=== PATIENT | female | born 1970 | race American Indian/Alaskan Native ===

== ENCOUNTER 2016-06-02 08:06 | Emergency (ER) | payer BC ==
[2016-06-02] MEDS ORDERED: TESSALON PERLES PO ONE (10:33)
[2016-06-02] MEDS ORDERED: MOTRIN PO ONE (10:33)
--- NOTE | 2016-06-02 10:39 | Emergency Department Report ---
ED General Adult HPI - General Chief complaint: Upper Respiratory Infection Stated complaint: FEVER BACK ACHE/HEAD Time Seen by Provider: 06/02/16 10:22 Source: patient Mode of arrival: Ambulatory Limitations: No Limitations - History of Present Illness Initial comments: PT c/o cough x 1.5 weeks. PT states yesterday she was at work and she felt fatigued and sick so she had to leave work early. No improvement with theraflu. PT states she could not sleep last night and she checked her temp multiple times. t max 100.4 which improved with rest. MD Complaint: fever -: Gradual, Last night Severity scale (0 -10): 8 Associated Symptoms: cough, weakness (generalized fatigue). denies: chest pain , loss of appetite, shortness of breath Treatments Prior to Arrival: other (theraflu - yesterday ) - Related Data Previous Rx's Medication Instructions Recorded Last Taken Type Benzonatate [Tessalon Perles] 100 mg PO Q8HR PRN #12 capsule 06/02/16 Unknown Rx Ibuprofen [Motrin] 600 mg PO Q8H PRN #15 tablet 06/02/16 Unknown Rx guaiFENesin DM [Robitussin Dm] 10 ml PO Q6HR PRN #1 bottle 06/02/16 Unknown Rx Allergies Allergy/AdvReac Type Severity Reaction Status Date / Time No Known Allergies Allergy Verified 02/21/14 07:17 ED Review of Systems ROS: Stated complaint: FEVER BACK ACHE/HEAD Other details as noted in HPI Comment: All other systems reviewed and negative Constitutional: chills, fever, other (wt loss. PT states she was 209lbs 2 years ago and her wt dropped to 160 when she was walking. pt states her wt is even less today ) ENT: congestion ("always") Gastrointestinal: as per HPI, other (tolerating po fluids ). denies: vomiting Genitourinary: denies: dysuria Musculoskeletal: back pain ED Past Medical Hx - Past Medical History Previous Medical History?: No - Surgical History Additional Surgical History: Tubal ligation - Social History Smoking Status: Current Every Day Smoker Substance Use Type: None - Medications Home Medications: Home Medications Medication Instructions Recorded Confirmed Last Taken Type Benzonatate [Tessalon Perles] 100 mg PO Q8HR PRN #12 capsule 06/02/16 Unknown Rx Ibuprofen [Motrin] 600 mg PO Q8H PRN #15 tablet 06/02/16 Unknown Rx guaiFENesin DM [Robitussin Dm] 10 ml PO Q6HR PRN #1 bottle 06/02/16 Unknown Rx ED Physical Exam - General Limitations: No Limitations General appearance: alert, in no apparent distress - Head Head exam: Present: atraumatic, normocephalic, normal inspection - Eye Eye exam: Present: normal appearance, EOMI. Absent: conjunctival injection - ENT ENT exam: Present: normal exam, mucous membranes moist, TM's normal bilaterally , normal external ear exam - Neck Neck exam: Present: normal inspection. Absent: tenderness, lymphadenopathy - Respiratory Respiratory exam: Present: normal lung sounds bilaterally. Absent: respiratory distress, wheezes - Cardiovascular Cardiovascular Exam: Present: normal rhythm, tachycardia (mildly ) - GI/Abdominal GI/Abdominal exam: Present: soft. Absent: tenderness - Extremities Exam Extremities exam: Present: normal inspection, full ROM - Back Exam Back exam: Present: normal inspection. Absent: tenderness, CVA tenderness (R), CVA tenderness (L) - Neurological Exam Neurological exam: Present: alert, oriented X3 - Psychiatric Psychiatric exam: Present: normal affect, normal mood - Skin Skin exam: Present: warm, dry, intact ED Course Vital Signs 06/02/16 06/02/16 08:21 14:18 Temperature 100.4 F H 100 F H Pulse Rate 107 H 93 H Respiratory 20 18 Rate Blood Pressure 125/80 Blood Pressure 135/78 [Left] O2 Sat by Pulse 100 100 Oximetry - Reevaluation(s) Reevaluation #1: 06/02/16 10:42 PT aware of plan of care. Reevaluation #2: 06/02/16 14:01 PT aware of xr and lab results. PT has no questions at this time. pt's temp decreased to 100, hr 94 and pulse ox 98% at this time. - Pulse Oximetry Interpretation Digit-Finger Initial Pulse Oximetry Readin Actions Taken: none ED Medical Decision Making - Radiology Data Radiology results: report reviewed CXR: Nap - Differential Diagnosis PNA, Bronchitis, influenza Critical care attestation.: If time is entered above; I have spent that time in minutes in the direct care of this critically ill patient, excluding procedure time. ED Disposition Clinical Impression: Viral URI with cough Disposition: DISCHARGED TO HOME OR SELFCARE Is pt being admited?: No Does the pt Need Aspirin: No Condition: Stable Instructions: Upper Respiratory Infection (ED), Viral Syndrome (ED) Prescriptions: Benzonatate [Tessalon Perles] 100 mg PO Q8HR PRN #12 capsule PRN Reason: Cough guaiFENesin DM [Robitussin Dm] 10 ml PO Q6HR PRN #1 bottle PRN Reason: Cough Ibuprofen [Motrin] 600 mg PO Q8H PRN #15 tablet PRN Reason: Pain Referrals: PRIMARY CARE, [Primary Care Provider] - 3-5 Days Forms: Work/School Release Form(ED) Time of Disposition: 14:05
[2016-06-02 11:41] LABS: Bilirubin,Urine NEG (Negative); Blood,Urine NEG (Negative); Ketones,Urine TR mg/dL (Negative); Leukocyte Esterase,Urine NEG (Negative); Mucus,Urine 3+ /HPF; Nitrite,Urine NEG (Negative)
--- NOTE | 2016-06-02 13:32 | XRay Report ---
CHEST TWO VIEWS: 06/02/16 CLINICAL: Cough and fever.Weight loss. COMPARISON: None FINDINGS: Normal heart and pulmonary vasculature. The lungs are normally expanded and clear.The bones and soft tissues are unremarkable. IMPRESSION: Normal chest.
[2016-06-02 14:19] VITALS: BP 135/78
== END 2016-06-02 14:18 | disposition home or self-care (01) ==
LOC: EDBD 08:06 → ED 08:06
DX: J06.9 Acute upper respiratory infection, unspecified (principal); F17.200 Nicotine dependence, unspecified, uncomplicated; Z98.51 Tubal ligation status
CPT/HCPCS: 71020; 81001; 81025; 87400; 99283

== ENCOUNTER 2020-03-04 10:20 | Outpatient (CLI) | payer BC ==
--- NOTE | 2020-03-04 11:55 | Ultrasound Report ---
LEFT DIGITAL DIAGNOSTIC MAMMOGRAM WITH CAD CONVENTIONAL, 03/04/2020 LEFT LIMITED BREAST ULTRASOUND CLINICAL INFORMATION / INDICATION: Follow-up known left breast cancer post adjuvant chemotherapy. R92 .8 TECHNIQUE: Digital left mammographic imaging was performed. Limited ultrasound was performed. This ex amination was interpreted with the benefit of Computer-Aided Detection (CAD) analysis. COMPARISON: Left breast mammogram 10/07/19 and left breast ultrasound 10/07/19. FINDINGS: Breast Density: There are scattered areas of fibroglandular density. MAMMOGRAPHIC FINDINGS: The dominant nodule is at the top o'clock position and measures 1.6 cm on the current study compared to 1.4 cm previously. There is an associated biopsy clip. The other nodularity in the left lower inner quadrant has not changed significantly in size. Another biopsy clip is noted in this region. No new abnormality is seen. ULTRASOUND FINDINGS: Targeted ultrasound evaluation was performed of the area of interest. There is a 1.7 cm irregular hypoechoic solid nodule at the 5:00 position 7 cm from the nipple. The nodule nancy sured approximately 1.5 cm previously. The other mammographically detected nodularity is not well see n sonographically. Incidental note is made of mild benign-appearing ductal ectasia in the subareolar region. IMPRESSION: Multifocal nodularity in the left inferior and inferomedial breast. The dominant nodule a t the 5:00 position has shown mild increase in size since the prior study. The patient is due for ciera re 03/21/20. Follow up recommendation: Surgical consult BI-RADS Category 6: Known Biopsy-Proven Malignancy. A "normal" or negative report should not discourage follow up or biopsy of a clinically significant f inding. A written summary of these findings will be mailed to the patient. The patient will be entered into a mammography reporting system which will generate a reminder letter for the patient's next appointmen t at the appropriate interval. According to the [employer], yearly mammograms are recommended starting at age 40 and continuing as long as a woman is in good health. Breast MRI is recommended for women with an leonides roximately 20-25% or greater lifetime risk of breast cancer, including women with a strong family his tory of breast or ovarian cancer and women who have been treated for Hodgkin's disease. Signer Name: Roni Belle MD Signed: 03/04/2020 11:51 AM Workstation Name: [id number]
== END 2020-03-04 10:21 | disposition home or self-care (01) ==
LOC: MAMMO 10:20
PROVIDERS: ATTEND Surgery
DX: N63.23 Unspecified lump in the left breast, lower outer quadrant (principal); N63.24 Unspecified lump in the left breast, lower inner quadrant

== ENCOUNTER 2020-04-06 08:20 | Observation (INO) | payer BC ==
--- NOTE | 2020-04-01 12:49 | Anesthesia Consultation ---
Anesthesia Consult and Med Hx Date of service: 04/06/20 - Airway Anesthetic Teeth Evaluation: Poor, Chipped ROM Head & Neck: Adequate Mental/Hyoid Distance: Adequate Mallampati Class: Class II Intubation Access Assessment: Probably Good - Pulmonary Exam CTA: Yes - Cardiac Exam Cardiac Exam: RRR - Pre-Operative Health Status ASA Pre-Surgery Classification: ASA3 Proposed Anesthetic Plan: General Nerve Block: PEC - Pulmonary Hx Smoking: Yes (quit within the last year) Hx Respiratory Symptoms: Yes (occasional KELLEY, chronic) - Cardiovascular System Hx Hypertension: Yes Hx Heart Attack/AMI: No (TTE 02/2020 30-35%) Hx Percutaneous Transluminal Coronary Angioplasty (PTCA): No Hx Cardia Arrhythmia: No - Central Nervous System CVA: No - Gastrointestinal Hx Gastroesophageal Reflux Disease: Yes (mild, diet related) - Endocrine Hx Renal Disease: No (03/31/20 BUN/test case developer 11/0.8) Hx Liver Disease: No Hx Insulin Dependent Diabetes: No Hx Non-Insulin Dependent Diabetes: No Hx Thyroid Disease: No - Hematic Hx Anemia: No (03/31/20 H/H ) - Other Systems Hx Cancer: Yes (hx breast ca s/p chemotherapy) Hx Obesity: Yes (BMI 32) - Additional Comments Anesthesia Medical History Comments: No hx anesthetic complications. Most recent cardiology records reviewed.
[~2020-04-06 08:20] MED LIST: ACETAMINOPHEN 500 MG TAB PO SCH; GABAPENTIN 300 MG CAP PO NR; LACTATED RINGERS 1,000 ML IV SCH; MAGNESIUM OXIDE 400 MG TAB PO SCH; SCOPOLAMINE TRANSDERMAL PATCH 72 HR TD NR; ceFAZolin/Water 2 GM/20 ML 2 GM/20 ML SYRINGE IV NR; fentaNYL 100 MCG/2 ML INJ IV PRN
--- NOTE | 2020-04-06 10:10 | Anesthesia Day of Surgery ---
Anesthesia Day of Surgery - Day of Surgery Patient Examined: Yes Patient H&P Reviewed: Yes Patient is NPO: Yes
[2020-04-06] MEDS ORDERED: HYDROmorphone 1 MG/1 ML INJ IV PRN ×2 (10:30)
[2020-04-06] MEDS ORDERED: ONDANSETRON 4 MG/2 ML INJ IV PRN ×2 (10:30→17:05)
[2020-04-06] MEDS ORDERED: LIDOCAINE MPF (2%) 20 MG/1 ML VIAL 5 ML ONE (11:17)
[2020-04-06] MEDS ORDERED: dexAMETHasone 20 MG/5 ML VIAL ONE (11:17)
[2020-04-06] MEDS ORDERED: propofoL 200 MG/20 ML VIAL IV ONE (11:17)
[2020-04-06] MEDS ORDERED: ROCURONIUM 50 MG/5 ML INJ IV ONE (11:17)
[2020-04-06] MEDS ORDERED: ONDANSETRON 4 MG/2 ML INJ ONE (11:17)
[2020-04-06] MEDS ORDERED: HYDROmorphone 1 MG/1 ML INJ ONE ×2 (11:17→17:01)
[2020-04-06] MEDS ORDERED: BUPIVACAINE/PF (0.25%) 2.5 MG/ML 30 ML VIAL INFILTRATI ONE ×2 (11:35→11:49)
[2020-04-06] MEDS ORDERED: dexAMETHasone 4 MG/ML VIAL ONE (11:36)
[2020-04-06] MEDS: MIDAZOLAM 2 MG/2 ML INJ IV NR ×2 (11:40→11:42)
[2020-04-06] MEDS ORDERED: LIDOCAINE (1%) 10 MG/1 ML VIAL 20 ML MDV ONE (11:49)
[2020-04-06] MEDS ORDERED: SODIUM CHLORIDE P/F VIAL 10 ML 10 ML ONE (11:49)
[2020-04-06] MEDS ORDERED: METHYLENE BLUE 50 MG/10 ML AMP ONE ×2 (11:57→15:08)
[2020-04-06] MEDS ORDERED: WATER FOR IRRIG STERILE 1,500 ML BOTTLE IR ONE (13:08)
[2020-04-06] MEDS ORDERED: METHYLENE BLUE 50 MG/10 ML AMP IV ONE ×2 (13:08)
[2020-04-06] MEDS ORDERED: ceFAZolin 1 GM VIAL ONE ×2 (13:59→16:40)
[2020-04-06] MEDS ORDERED: BACITRACIN 50,000 UNIT VIAL ONE (14:00)
[2020-04-06] MEDS ORDERED: GENTAMICIN 40 MG/ML VIAL 2 ML ONE (14:00)
[2020-04-06] MEDS ORDERED: SODIUM CHLORIDE P/F VIAL 10 ML 20 ML ONE (14:10)
[2020-04-06] MEDS ORDERED: ceFAZolin 1 GM VIAL IV ONE (15:04)
[2020-04-06] MEDS ORDERED: BACITRACIN 50,000 UNIT VIAL IR ONE (15:04)
[2020-04-06] MEDS ORDERED: GENTAMICIN 40 MG/ML VIAL 2 ML IV ONE (15:11)
[2020-04-06] MEDS ORDERED: SODIUM CHLORIDE 0.9% 1000 ML 1,000 ML ONE (15:11)
[2020-04-06] MEDS ORDERED: SODIUM CHLORIDE 0.9% IRR 1,500 ML BOTTLE IR ONE (15:16)
--- NOTE | 2020-04-06 15:31 | Mammography Report ---
Left breast surgical specimen INDICATION: Left breast cancer, surgical excision. COMPARISON: 03/04/2020, 10/07/2019, 09/30/2019. FINDINGS: 3 images of left breast surgical specimen are submitted. Ribbon shaped biopsy marker and ward wtie shaped biopsy markers are noted within the specimen. IMPRESSION: Left breast surgical specimen demonstrating two biopsy markers (ribbon and bowtie) within the surgica l specimen. Signer Name: Graham Hernandez MD Signed: 04/06/2020 3:27 PM Workstation Name: [id number]
--- NOTE | 2020-04-06 15:32 | Operative Report ---
Operative Report Operative Report: Operative Report: Date of Service: April 06, 2020 Preoperative diagnosis: Multricentric left breast cancer of the lower outer quadrant Postoperative diagnosis: Same Procedure: Left total mastectomy with sentinel lymph node biopsy followed by ALND Surgeon: Angely Parr M.D. Nursing Home Administrator: Laverne Romero M.D. Anesthesia: Gen. Findings: Left breast clips present within left total mastectomy. 1 sentinel lymph node identified and positive for malignancy on frozen section of pathology and proceeded with left axillary lymph node dissection; palpable left axillary lymph nodes Complications: None Drains: per Plastic Surgery Estimated blood loss: 50-100 cc Disposition: Plastic surgery proceeded with left tissue market development specialist placement Indications for operative procedure: This is a 49-year-old lady with stage II multicentric left breast cancer of the lower outer quadrant, [id number] ER/TN positive. She completed neoadjuvant chemotherapy and recommendations were to proceed with a left mastectomy with SLNB and probable ALND given persistnet abnormal left axillary lymph nodes noted on ultrasound. She wished to proceed with immediated left tissue market development specialist placement in conjunction with plastic surgery. She wished to proceed with the above procedure. She understands the role of adjuvant radiation therapy. Procedure in detail: The patient was taken to the operating room and was placed supine. Gen. anesthesia was administered. The left nipple was injected with radioisotope and 1 cc of methylene blue. Bilateral chest and axillas were prepped and draped in the normal sterile operative fashion. Timeout was performed. Typical mastectomy incision markings were made. Ultrasound used to vianca the areas of known malignancy of the lower outer quadrant with at least 4 masses noted. Attention was taken towards the left breast. A gamma probe was inserted into the axilla to identify the sentinel lymph node location with uptake noted; abnormal appearing left axillary lymph node on ultrasound present as well and patient with prior known metastatic left axillary lymph node prior to starting neoadjuvant chemotherapy. A skin incision was made with a 10 blade knife and dissection taken down to the subcutaneous tissues. First began raising of the superior flap to the level of the clavicle superiorly and posteriorly to the pectoralis muscle. Followed by raising of the medial flap to the level of the sternum and posteriorly to the pectoralis muscle. Followed by raising of the lateral flap to the level of the latissimus dorsi muscle and taken down posteriorly. The gamma probe was inserted into the axilla, the axillary fascia was opened and 1 axillary lymph node was identified that was dissected free and sent to pathology; uptake and blue dye present. Patient with positive axillary lymph node prior to chemotherapy and palpable axillary lymphadenoathy noted. Axillary lymph node was sent to pathology with findings positive for malignancy noted on frozen section. Then proceeded with raising of the inferior flap to the level of the inframammary fold taken posterior to the pectoralis muscle. The mastectomy/breast was removed from the pectoralis muscle without incident. The specimen was appropriately marked and sent to radiology with findings of breast clips present and sent to pathology. Mastectomy skin flap anterior to the most anterior mass was revised and resected given concerns of close margins given tumor proximity to skin. Attention was then taken towards the left axilla. First began opening of the axillary fascia further. The lattismus dorsi muscle was identified and followed superiorly. Then proceeded with identification of the axillary vein followed by identification of the thoracodorsal bundle and long thoracic nerve. Axillary lymph nodes were then removed from the above boundaries with the aid of the bovie cautery in a sweeping-like motion and then sent to pathology. Axillary lymph nodes from level I and II were removed. Both nerves were identified and unharmed. Palpable axillary lymphadenopathy was noted. Hemostasis was noted. The chest wall was irrigated and suctioned. Plastic surgery then proceeded with left tissue market development specialist placement.
--- NOTE | 2020-04-06 15:37 | Short Stay Summary ---
Short Stay Documentation Date of service: 04/06/20 - History H&P: obtained from office - Allergies and Medications Current Medications: Allergies No Known Allergies Allergy (Verified 03/31/20 09:18) Home Medications Medication Instructions Recorded Confirmed Last Taken Type AtorvaSTATin [Lipitor] 40 mg PO QHS 03/31/20 03/31/20 04/05/20 History Lisinopril [Zestril] 20 mg PO DAILY 03/31/20 04/01/20 04/05/20 History Mag Oxide/D3/Turmeric Rt Xt 1 each PO DAILY 03/31/20 03/31/20 04/05/20 History [Magnesium-Vit D3-Turmeric Tab] Vitamin B Complex Vit C No.3 [B 1 each PO DAILY 03/31/20 03/31/20 04/05/20 History Complex with Vitamin C] carvediloL [Coreg] 3.125 mg PO BID 03/31/20 04/06/20 04/06/20 07:30 History tiZANidine [Zanaflex 4mg TAB] 4 mg PO Q8H PRN 03/31/20 03/31/20 04/05/20 History Celecoxib [celeBREX] 100 mg PO BID 04/01/20 04/01/20 04/05/20 History Thiamine HCl 500 mg PO HS 04/01/20 04/01/20 04/05/20 History Active Medications Acetaminophen (Acetaminophen 500 Mg Tab) 1,000 mg PO PREOP JANY Stop: 04/06/20 23:59 Last Admin: 04/06/20 10:10 Dose: 1,000 mg Documented by: Fentanyl (Fentanyl 100 Mcg/2 Ml Inj) 100 mcg IV ONCE PRN PRN Reason: sedation for nerve block Stop: 04/06/20 23:59 Last Admin: 04/06/20 11:42 Dose: 100 mcg Documented by: Gabapentin (Gabapentin 300 Mg Cap) 300 mg PO PREOP NR Stop: 04/06/20 23:59 Last Admin: 04/06/20 10:10 Dose: 300 mg Documented by: Hydromorphone HCl (Hydromorphone 1 Mg/1 Ml Inj) 0.25 mg IV Q10MIN PRN PRN Reason: Pain, Moderate (4-6) Stop: 04/06/20 17:00 Hydromorphone HCl (Hydromorphone 1 Mg/1 Ml Inj) 0.5 mg IV Q10MIN PRN PRN Reason: Pain , Severe (7-10) Stop: 04/06/20 17:00 Cefazolin Sodium (Ancef/Sterile Water 2 Gm/20 Ml) 2 gm in 20 mls @ 80 mls/hr IV PREOP NR; Protocol Stop: 04/06/20 23:59 Lactated Ringer's (Lactated Ringers) 1,000 mls @ 50 mls/hr IV DIRECT JANY Stop: 04/06/20 23:59 Last Admin: 04/06/20 10:30 Dose: 50 mls/hr Documented by: Magnesium Oxide (Magnesium Oxide 400 Mg Tab) 400 mg PO PREOP JANY Stop: 04/06/20 23:59 Last Admin: 04/06/20 10:10 Dose: 400 mg Documented by: Midazolam HCl (Midazolam 2 Mg/2 Ml Inj) 2 mg IV PREOP NR Stop: 04/06/20 23:59 Last Admin: 04/06/20 11:42 Dose: 2 mg Documented by: Ondansetron HCl (Ondansetron 4 Mg/2 Ml Inj) 4 mg IV ONCE PRN PRN Reason: Nausea And Vomiting Stop: 04/06/20 17:00 Scopolamine (Scopolamine Transdermal Patch 72 Hr) 1 each TD PREOP NR Stop: 04/09/20 05:59 Last Admin: 04/06/20 10:12 Dose: 1 each Documented by: - Brief post op/procedure progress note Date of procedure: 04/06/20 Pre-op diagnosis: Multicentric left breast cancer lower outer quadrant Post-op diagnosis: same Procedure: Left total mastectomy with SLNB followed by immediate left axillary lymph node dissection Anesthesia: GETA Findings: Left breast clips present; x1 SLN and positive for malignancy and proceeded with an ALND Surgeon: JOHNSON FUENTES Estimated blood loss: 50-100ml Pathology: list Specimen disposition: to lab Condition: stable - Disposition Condition at discharge: Good Disposition: DC/TX-02 SHRT-TRM GEN HOSP IP Short Stay Discharge Plan Activity: other (no heavy lifting) Diet: regular Wound: keep clean and dry Follow up with: JOHNSON FUENTES MD [Staff Physician] - 7 Days
[2020-04-06] MEDS ORDERED: diphenhydrAMINE 25 MG CAP PO PRN (15:38)
[2020-04-06] MEDS ORDERED: ACETAMINOPHEN 325 MG TAB PO PRN (15:38)
[2020-04-06] MEDS ORDERED: LACTATED RINGERS 1,000 ML IV SCH (15:45)
[2020-04-06] MEDS ORDERED: METOCLOPRAMIDE 10 MG TAB PO PRN (16:00)
[2020-04-06] MEDS ORDERED: HYDROmorphone 2 MG TAB PO PRN (16:00)
[2020-04-06] MEDS ORDERED: oxyCODONE /ACETAMINOPHEN 5-325MG TAB PO PRN (16:00)
[2020-04-06] MEDS ORDERED: hydrALAZINE 20 MG/1 ML INJ ONE (16:54)
--- NOTE | 2020-04-06 17:03 | Operative Report ---
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 Anesthesia: General EBL: Minimal Indications: This patient is a 49 year old AAF who is scheduled for a left mastectomy and desired reconstruction. We discussed her options including autologous tissue transfer and she was interested in the least complex reconstructive route possible. So we planned for tissue pole framer machine placement with the use of acellular dermal matrix. The benefits as well as the risks of the procedure were discussed with the patient, including but not limited to infection, bleeding, hematoma, seroma, wound dehiscence, implant rupture, need for further surgery including planned stages and additional reconstruction. The patient understands and accepts these risks and desires to proceed with surgery. Procedure: After review of pertinent history and physical exam findings the patient was brought into the operating room and placed supine on the OR table. After induction of adequate general anesthesia the entire chest was prepped and draped in the usual sterile surgical fashion. To begin, Dr. Angely Parr performed the left mastectomy and axillary node dissection and this procedure is dictated under a separate operative note. When this was completed, the breast reconstruction was started on the right breast. Using electrocautery we dissected a submuscular pocket behind pectoralis muscle to accommodate the tissue pole framer machine. The pocket was thoroughly irrigated with triple antibiotic solution and we began re-creating the inframammary border using Flex HD perforated contoured, a total size of [id number], SN [id number]. The inferior aspect of the Flex HD was secured to the chest fascia using 2-0 PDS suture. This was followed by placement of the tissue pole framer machine, [employer] Siltex 650cc (SN [id number]), in the submuscular pocket. Following this the inferior border of the pectoralis fascia was secured to the superior border of the FlexHD also using 2-0 PDS suture. A 19 [place] Jarred drain was placed in the subcutaneous space and secured using 2-0 Nylon suture. Using the enclosed injection needle, the injection port was identified and 250cc of methylene blue-tinged injectable saline was added to the implant. We then began a 3-layered closure using 2-0 Monocryl and 3-0 Monoderm Quill 40u05ym suture. This was followed by Dermabond glue and then Telfa with tegaderm followed by bra binder. Patient was then awakened from general anesthesia and transferred to the recovery room instable condition. She tolerated the procedure well. There were no complications. All sponge, needle and instrument counts were correct at the end of the case.
[2020-04-06] MEDS: HYDROmorphone 1 MG/1 ML INJ IV PRN ×4 (17:04→17:34)
--- NOTE | 2020-04-06 17:26 | Post Anesthesia Evaluation ---
- Post Anesthesia Evaluation Patient Participated: Yes Airway Patent: Yes Stable Respiratory Function: Yes Nausea/Vomiting: No Temp > 96.8F: Yes Pain Manageable: Yes Adequeate Hydration: Yes Anesthesia Complications: No Block Receding Appropriately: Yes Patient on Ventilator: No
[2020-04-06] MEDS ORDERED: DOCUSATE SODIUM 100 MG CAP PO SCH (22:00)
[2020-04-06] MEDS: ONDANSETRON 4 MG/2 ML INJ IV PRN (22:05)
[2020-04-06] MEDS: MORPHINE 2 MG/1 ML INJ IV PRN (22:10)
[2020-04-07] MEDS: ONDANSETRON 4 MG/2 ML INJ IV PRN (06:12)
[2020-04-07] MEDS: MORPHINE 2 MG/1 ML INJ IV PRN (06:12)
[2020-04-07] MEDS: CLINDAMYCIN 300 MG CAP PO SCH ×2 (08:45→14:05)
[2020-04-07] MEDS ORDERED: LISINOPRIL 20 MG TAB PO SCH (10:00)
--- NOTE | 2020-04-07 12:29 | Progress Note ---
Subjective Date of service: 04/07/20 Interval history: Plastic Surgery Progress Note 49 Y/o AAF POD #1 s/p left mastectomy and breast reconstruction with tissue process validation engineer and FlexHD placement. She reports that she is feeling a lot better, pain is well controlled. Denies fever or chills, had some mild nausea earlier b ut it appears to be resolving. AFVSS Left chest mastectomy flaps viable, brisk cap refill. TE in place, no hematoma or seroma, no evidence of infection. Drain ss output, functional. A/P: POD #1 s/p left mastectomy and breast reconstruction with tissue process validation engineer and FlexHD placement Discharge home in the care of her cousin. Pt's BP was elevated post op, normalizing since this morning. She was advised to f/u with PCP to ensure that her current home meds are adequately controlling her BP long-term. I/S: Pt encouraged to do frequent Incentive spirometry to prevent atelectasis Prescriptions sent to her pharmacy of choice. Follow up next week in clinic. Call to confirm appt. Objective - Constitutional Vitals: Vital Signs - 12hr 04/07/20 04/07/20 04/07/20 01:53 05:40 07:27 Temperature 99.8 F H 99.6 F 99.4 F Pulse Rate 99 H 88 83 Respiratory 20 20 16 Rate Blood Pressure 158/92 171/94 145/78 O2 Sat by Pulse 100 97 100 Oximetry Medications & Allergies - Medications Allergies/Adverse Reactions: Allergies No Known Allergies Allergy (Verified 03/31/20 09:18) Home Medications: Home Medications Medication Instructions Recorded Confirmed Last Taken Type AtorvaSTATin [Lipitor] 40 mg PO QHS 03/31/20 03/31/20 04/05/20 History Lisinopril [Zestril] 20 mg PO DAILY 03/31/20 04/01/20 04/05/20 History Mag Oxide/D3/Turmeric Rt Xt 1 each PO DAILY 03/31/20 03/31/20 04/05/20 History [Magnesium-Vit D3-Turmeric Tab] Vitamin B Complex Vit C No.3 [B 1 each PO DAILY 03/31/20 03/31/20 04/05/20 History Complex with Vitamin C] carvediloL [Coreg] 3.125 mg PO BID 03/31/20 04/06/20 04/06/20 07:30 History tiZANidine [Zanaflex 4mg TAB] 4 mg PO Q8H PRN 03/31/20 03/31/20 04/05/20 History Celecoxib [celeBREX] 100 mg PO BID 04/01/20 04/01/20 04/05/20 History Thiamine HCl 500 mg PO HS 04/01/20 04/01/20 04/05/20 History Active Medications: Generic Name Dose Route Start Last Admin Trade Name Freq PRN Reason Stop Dose Admin Acetaminophen 650 mg 04/06/20 15:38 Acetaminophen 325 Mg Tab PO Q6H PRN Pain MILD(1-3)/Fever >100.5/SHAFER Clindamycin HCl 300 mg 04/06/20 20:00 04/07/20 08:45 Clindamycin 300 Mg Cap PO 300 mg TID JANY Administration Protocol Diphenhydramine HCl 25 mg 04/06/20 15:38 Diphenhydramine 25 Mg Cap PO Q8H PRN Itching Docusate Sodium 100 mg 04/06/20 22:00 04/07/20 11:56 Docusate Sodium 100 Mg Cap PO Not Given BID JANY Hydromorphone HCl 2 mg 04/06/20 16:00 04/07/20 11:55 Hydromorphone 2 Mg Tab PO 2 mg Q6H PRN Administration Pain , Severe (7-10) Lactated Ringer's 1,000 mls @ 125 mls/hr 04/06/20 15:45 Lactated Ringers IV DIRECT JANY Lisinopril 20 mg 04/07/20 10:00 04/07/20 10:02 Lisinopril 20 Mg Tab PO 20 mg QDAY JANY Administration Metoclopramide HCl 10 mg 04/06/20 16:00 04/07/20 02:23 Metoclopramide 10 Mg Tab PO 10 mg Q6H PRN Administration Nausea And Vomiting Morphine Sulfate 2 mg 04/06/20 16:00 04/07/20 06:12 Morphine 2 Mg/1 Ml Inj IV 2 mg Q4H PRN Administration Pain, Moderate (4-6) Ondansetron HCl 4 mg 04/06/20 16:00 04/07/20 06:12 Ondansetron 4 Mg/2 Ml Inj IV 4 mg Q8H PRN Administration N/V unrelieved by Reglan Oxycodone/Acetaminophen 1 tab 04/06/20 16:00 Oxycodone /Acetaminophen 5-325mg Tab PO Q6H PRN Pain, Moderate (4-6) Scopolamine 1 each 04/06/20 06:00 04/06/20 10:12 Scopolamine Transdermal Patch 72 Hr TD 04/09/20 05:59 1 each PREOP NR Administration Sodium Chloride 10 ml 04/06/20 15:38 Sodium Chloride 0.9% 10 Ml Flush Syringe IV PRN PRN LINE FLUSH
[2020-04-07 12:57] VITALS: BP 165/91
== END 2020-04-07 16:00 | disposition home or self-care (01) ==
LOC: OR 08:20 → OB 15:38
PROVIDERS: ADMIT Plastic Surgery; ATTEND Surgery
DX: C50.512 Malignant neoplasm of lower-outer quadrant of left female breast (principal); Z20.828 Contact with and (suspected) exposure to other viral communicable diseases; C50.812 Malignant neoplasm of overlapping sites of left female breast; Z79.899 Other long term (current) drug therapy
CPT/HCPCS: 19303; 19357; 38525; 38792; 64450; 76098; 78800; 88307; 88309; 88331; 96374; 96375; 96376; A9541; C1789; G0378; J0360; J0690; J1100; J1170; J1580; J2250; J2270; J2405; J2704; J3010; J7030; J7120; Q4128; Q9968; U0003

== ENCOUNTER 2020-08-08 12:12 | Emergency (ER) | payer OTHER ==
[2020-08-08 12:24] VITALS: BP 169/106
--- NOTE | 2020-08-08 13:13 | Emergency Department Report ---
ED General Adult HPI - General Chief complaint: High BP Stated complaint: HIGH BLOOD PRESSURE Time Seen by Provider: 08/08/20 12:23 Source: patient Mode of arrival: Ambulatory Limitations: No Limitations - History of Present Illness Initial comments: This is a 50-year-old female nontoxic, well nourished in appearance, no acute signs of distress presents to the ED with c/o of hypertension. Patient stated she takes lisinopril 10 mg daily and has been very compliant but went to see her primary care doctor which was sent to the emergency room for hypertension. Patient stated she does not take her blood pressure daily and does not know her blood pressure readings. Patient otherwise denies any complaints or symptoms. Patient denies any headache, chest pain, shortness of breath, fever, chills, nausea, vomiting, numbness, tingling, back pain or neck pain. Patient denies any visual changes. Denies any allergies. Severity scale (0 -10): 0 Improves with: none Worsens with: none Associated Symptoms: denies other symptoms. denies: confusion, chest pain, cough, diaphoresis, fever/chills, headaches, loss of appetite, malaise, nausea/vomiting, rash, seizure, shortness of breath, syncope, weakness Treatments Prior to Arrival: none - Related Data Home Medications Medication Instructions Recorded Confirmed Last Taken AtorvaSTATin [Lipitor] 40 mg PO QHS 03/31/20 03/31/20 04/05/20 Lisinopril [Zestril] 20 mg PO DAILY 03/31/20 04/01/20 04/05/20 Mag Oxide/D3/Turmeric Rt Xt 1 each PO DAILY 03/31/20 03/31/20 04/05/20 [Magnesium-Vit D3-Turmeric Tab] Vitamin B Complex Vit C No.3 [B 1 each PO DAILY 03/31/20 03/31/20 04/05/20 Complex with Vitamin C] carvediloL [Coreg] 3.125 mg PO BID 03/31/20 04/06/20 04/06/20 07:30 tiZANidine [Zanaflex 4mg TAB] 4 mg PO Q8H PRN 03/31/20 03/31/20 04/05/20 Celecoxib [celeBREX] 100 mg PO BID 04/01/20 04/01/20 04/05/20 Thiamine HCl 500 mg PO HS 04/01/20 04/01/20 04/05/20 Allergies Allergy/AdvReac Type Severity Reaction Status Date / Time No Known Allergies Allergy Verified 03/31/20 09:18 ED Review of Systems ROS: Stated complaint: HIGH BLOOD PRESSURE Other details as noted in HPI Comment: All other systems reviewed and negative Constitutional: denies: chills, fever Eyes: denies: eye pain, eye discharge, vision change ENT: denies: ear pain, throat pain Respiratory: denies: cough, shortness of breath, wheezing Cardiovascular: denies: chest pain, palpitations Endocrine: no symptoms reported Gastrointestinal: denies: abdominal pain, nausea, diarrhea Genitourinary: denies: urgency, dysuria, discharge Musculoskeletal: denies: back pain, joint swelling, arthralgia Skin: denies: rash, lesions Neurological: denies: headache, weakness, paresthesias Psychiatric: denies: anxiety, depression Hematological/Lymphatic: denies: easy bleeding, easy bruising ED Past Medical Hx - Past Medical History Previous Medical History?: Yes Hx Hypertension: Yes Hx CVA: No Hx Heart Attack/AMI: No (TTE 02/2020 30-35%) Hx Congestive Heart Failure: Yes Hx Diabetes: No Hx Deep Vein Thrombosis: No Hx GERD: Yes (Based on food intake) Hx Liver Disease: No Hx Renal Disease: No (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) Hx of Cancer: Yes (Left breast CA) Hx Arthritis: Yes (OA) Hx Seizures: No Hx Asthma: No Hx COPD: No - Surgical History Past Surgical History?: Yes Hx Breast Surgery: Yes (Left breast biopsy) Additional Surgical History: Tubal ligation - Social History Smoking Status: Former Smoker - Medications Home Medications: Home Medications Medication Instructions Recorded Confirmed Last Taken Type AtorvaSTATin [Lipitor] 40 mg PO QHS 03/31/20 03/31/20 04/05/20 History Lisinopril [Zestril] 20 mg PO DAILY 03/31/20 04/01/20 04/05/20 History Mag Oxide/D3/Turmeric Rt Xt 1 each PO DAILY 03/31/20 03/31/20 04/05/20 History [Magnesium-Vit D3-Turmeric Tab] Vitamin B Complex Vit C No.3 [B 1 each PO DAILY 0103/31/20 04/05/20 History Complex with Vitamin C] carvediloL [Coreg] 3.125 mg PO BID 03/31/20 04/06/20 04/06/20 07:30 History tiZANidine [Zanaflex 4mg TAB] 4 mg PO Q8H PRN 03/31/20 03/31/20 04/05/20 History Celecoxib [celeBREX] 100 mg PO BID 04/01/20 04/01/20 04/05/20 History Thiamine HCl 500 mg PO HS 04/01/20 04/01/20 04/05/20 History ED Physical Exam - General Limitations: No Limitations General appearance: alert, in no apparent distress - Head Head exam: Present: atraumatic, normocephalic - Eye Eye exam: Present: normal appearance - Neck Neck exam: Present: normal inspection, full ROM. Absent: tenderness, meningismus, lymphadenopathy - Respiratory Respiratory exam: Present: normal lung sounds bilaterally. Absent: respiratory distress, wheezes, rales, rhonchi, stridor, chest wall tenderness, accessory muscle use, decreased breath sounds, prolonged expiratory - Cardiovascular Cardiovascular Exam: Present: regular rate, normal rhythm, normal heart sounds. Absent: bradycardia, tachycardia, irregular rhythm, systolic murmur, diastolic murmur, rubs, gallop - GI/Abdominal GI/Abdominal exam: Present: soft, normal bowel sounds. Absent: distended, t enderness, guarding, rigid, diminished bowel sounds - Extremities Exam Extremities exam: Present: normal inspection, full ROM. Absent: pedal edema, joint swelling - Back Exam Back exam: Present: normal inspection, full ROM - Neurological Exam Neurological exam: Present: alert, oriented X3, normal gait - Psychiatric Psychiatric exam: Present: normal affect, normal mood - Skin Skin exam: Present: warm, dry, intact, normal color. Absent: rash ED Course Vital Signs 08/08/20 12:22 Temperature 98.6 F Pulse Rate 72 Respiratory 18 Rate Blood Pressure 169/106 [Right] O2 Sat by Pulse 100 Oximetry - Reevaluation(s) Reevaluation #1: 08/08/20 13:13 Patient is speaking in full sentences with no signs of distress noted. ED Medical Decision Making - Lab Data Result diagrams: 08/08/20 12:48 08/08/20 12:48 Lab Results 08/08/20 08/08/20 08/08/20 Range/Units 12:48 12:48 Unknown WBC 4.4 L (4.5-11.0) K/mm3 RBC 4.24 (3.65-5.03) M/mm3 Hgb 13.1 (10.1-14.3) gm/dl Hct 38.9 (30.3-42.9) % MCV 92 (79-97) fl MCH 31 (28-32) pg MCHC 34 (30-34) % RDW 22.1 H (13.2-15.2) % Plt Count 203 (140-440) K/mm3 Lymph % (Auto) 37.2 H (13.4-35.0) % Phillips % (Auto) 12.9 H (0.0-7.3) % Eos % (Auto) 2.3 (0.0-4.3) % Baso % (Auto) 0.7 (0.0-1.8) % Lymph # (Auto) 1.6 (1.2-5.4) K/mm3 Phillips # (Auto) 0.6 (0.0-0.8) K/mm3 Eos # (Auto) 0.1 (0.0-0.4) K/mm3 Baso # (Auto) 0.0 (0.0-0.1) K/mm3 Seg Neutrophils % 46.9 (40.0-70.0) % Seg Neutrophils # 2.0 (1.8-7.7) K/mm3 Sodium 140 (137-145) mmol/L Potassium 3.9 (3.6-5.0) mmol/L Chloride 102.6 (98-107) mmol/L Carbon Dioxide 30 (22-30) mmol/L Anion Gap 11 mmol/L BUN 14 (7-17) mg/dL Glucose 74 (65-100) mg/dL Calcium 9.2 (8.4-10.2) mg/dL Total Bilirubin 0.50 (0.1-1.2) mg/dL AST 19 (5-40) units/L ALT 17 (7-56) units/L Alkaline Phosphatase 135 H (35-129) units/L Total Protein 7.4 (6.3-8.2) g/dL Albumin 4.0 (3.9-5) g/dL Albumin/Globulin Ratio 1.2 % Urine Color Yellow (Yellow) Urine Turbidity Clear (Clear) Urine pH 6.0 (5.0-7.0) Ur Specific Summers 1.015 (1.003-1.030) Urine Protein <15 mg/dl (Negative) mg/dL Urine Glucose (UA) Neg (Negative) mg/dL Urine Ketones Neg (Negative) mg/dL Urine Blood Neg (Negative) Urine Nitrite Neg (Negative) Urine Bilirubin Neg (Negative) Urine Urobilinogen < 2.0 (<2.0) mg/dL Ur Leukocyte Esterase Neg (Negative) Urine WBC (Auto) < 1.0 (0.0-6.0) /HPF Urine RBC (Auto) < 1.0 (0.0-6.0) /HPF U Epithel Cells (Auto) < 1.0 (0-13.0) /HPF - Medical Decision Making 50-year-old female that presents with hypertension. Patient stable and was examined by me. Physical exam is unremarkable. Vital signs are stable. Patient does not know her normal blood pressure readings. Patient was instructed to continue taking blood pressure medication and keep a daily diary of blood pressure and present to primary care doctor in 3 to 5 days. Patient was instructed to follow-up with a primary care doctor in 3-5 days or if symptoms worsen and continue return to emergency room as soon as possible. At time of discharge, the patient does not seem toxic or ill in appearance. No acute signs of distress noted. Patient agrees to discharge treatment plan of care. No further questions noted by the patient. According to ACEP: (1) in ED patients with asymptomatic markedly elevated blood pressure, routine screening for acute target organ injury (eg, serum creatinine, urinalysis, ECG) is not required. (1) In patients with asymptomatic markedly elevated blood pressure, routine ED medical intervention is not required. Critical care attestation.: If time is entered above; I have spent that time in minutes in the direct care of this critically ill patient, excluding procedure time. ED Disposition Clinical Impression: HTN (hypertension) Qualifiers: Hypertension type: unspecified Qualified Code(s): I10 - Essential (primary) hypertension Disposition: - TO HOME OR SELFCARE Is pt being admited?: No Does the pt Need Aspirin: No Condition: Stable Instructions: Hypertension (ED), Hypertension, Adult Additional Instructions: Follow-up with a primary care doctor in 3-5 days or if symptoms worsen and cont inue return to emergency room as soon as possible. Continue taking blood pressure medication as prescribed by your primary care doctor. As instructed to you, keep a daily diary of your blood pressure readings 3 times a day and share with your primary care doctor. Referrals: PRIMARY MD LAURA [Referring] - 3-5 Days FERNANDO MCGEE MD [Staff Physician] - 3-5 Days Forms: Work/School Release Form(ED) Time of Disposition: 13:50
[2020-08-08 13:32] LABS: Basophils % (Auto) 0.7 % (0.0-1.8); Eosinophils # (Auto) 0.1 K/mm3 (0.0-0.4); Eosinophils % (Auto) 2.3 % (0.0-4.3); Hematocrit 38.9 % (30.3-42.9); Hemoglobin 13.1 gm/dl (10.1-14.3); Lymphocytes # (Auto) 1.6 K/mm3 (1.2-5.4); Lymphocytes % (Auto) 37.2 % (13.4-35.0); Mean Corpuscular HGB Conc 34 % (30-34); Mean Corpuscular Volume 92 fl (79-97); Monocytes # (Auto) 0.6 K/mm3 (0.0-0.8); Monocytes % (Auto) 12.9 % (0.0-7.3); Platelet Count 203 K/mm3 (140-440); Red Blood Count 4.24 M/mm3 (3.65-5.03)
[2020-08-08 13:35] LABS: Red Cell Distribution Width 22.1 % (13.2-15.2)
[2020-08-08 13:41] LABS: Bilirubin,Urine NEG (Negative); Blood,Urine NEG (Negative); Color,Urine Yellow (Yellow); Protein,Urine <15 mg/dL mg/dL (Negative); RBC,Urine < 1.0 /HPF (0.0-6.0); Urobilinogen,Urine < 2.0 mg/dL (<2.0); WBC,Urine < 1.0 /HPF (0.0-6.0)
[2020-08-08 13:47] LABS: Alanine Aminotransferase 17 units/L (7-56); Blood Urea Nitrogen 14 mg/dL (7-17); Calcium 9.2 mg/dL (8.4-10.2); Hemolysis Index 6
[2020-08-08 14:23] LABS: BUN/Creatinine Ratio 20
== END 2020-08-08 15:49 | disposition home or self-care (01) ==
LOC: ED 12:12
DX: I11.0 Hypertensive heart disease with heart failure (principal); I50.9 Heart failure, unspecified; K21.9 Gastro-esophageal reflux disease without esophagitis; M19.90 Unspecified osteoarthritis, unspecified site; Z87.891 Personal history of nicotine dependence; Z98.890 Other specified postprocedural states; Z79.899 Other long term (current) drug therapy; Z98.51 Tubal ligation status
CPT/HCPCS: 36415; 80053; 81001; 85025

== ENCOUNTER 2020-10-04 13:03 | Outpatient (CLI) | payer OTHER ==
--- NOTE | 2020-10-05 09:39 | Mammography Report ---
DIGITAL SCREENING MAMMOGRAM WITH CAD, 10/04/2020 CLINICAL INFORMATION / INDICATION: Routine Screening Mammography. TECHNIQUE: Digital right 2D mammography with tomosynthesis was obtained in the craniocaudal and medi olateral oblique projections. Computer-Aided Detection (CAD) analysis was used for interpretation of this study. COMPARISON: No prior right-sided mammogram is available for comparison FINDINGS: Breast Density: There are scattered areas of fibroglandular density. No dominant mass, suspicious calcifications, or architectural distortion in the right breast. IMPRESSION: No mammographic evidence of malignancy. Follow up recommendation: Routine yearly BI-RADS Category 1: Negative. A "normal" or negative report should not discourage follow up or biopsy of a clinically significant f inding. A written summary of these findings will be mailed to the patient. The patient will be entered into a mammography reporting system which will generate a reminder letter for the patient's next appointmen t at the appropriate interval. The [employer] recommends yearly mammograms starting at age 40 and continuing as l vanessa as a woman is in good health. Breast MRI is recommended for women with an approximate 20-25% or greater lifetime risk of breast cancer, including women with a strong family history of breast or ova rosa cancer or who have been treated for Hodgkin's disease. Signer Name: Hemant Valenzuela MD Signed: 10/05/2020 9:35 AM Workstation Name: [id number]
== END 2020-10-04 13:04 | disposition home or self-care (01) ==
LOC: SPVWC 13:03
PROVIDERS: ATTEND Surgery
DX: Z12.31 Encounter for screening mammogram for malignant neoplasm of breast (principal); N64.89 Other specified disorders of breast

== ENCOUNTER 2020-12-28 07:29 | Day surgery (SDC) | payer OTHER ==
[~2020-12-28 07:29] MED LIST changes: +CELECOXIB 200 MG CAP PO NR; -MAGNESIUM OXIDE 400 MG TAB PO SCH; -ceFAZolin/Water 2 GM/20 ML 2 GM/20 ML SYRINGE IV NR; -fentaNYL 100 MCG/2 ML INJ IV PRN
[2020-12-28] MEDS ORDERED: ONDANSETRON 4 MG/2 ML INJ IV PRN (08:40)
[2020-12-28] MEDS ORDERED: HYDROmorphone 1 MG/1 ML INJ IV PRN (08:40)
[2020-12-28] MEDS ORDERED: oxyCODONE /ACETAMINOPHEN 5-325MG TAB PO PRN (08:40)
--- NOTE | 2020-12-28 08:40 | Anesthesia Consultation ---
Anesthesia Consult and Med Hx Date of service: 12/28/20 - Airway Anesthetic Teeth Evaluation: Good, Chipped (#9,10) ROM Head & Neck: Adequate Mental/Hyoid Distance: Adequate Mallampati Class: Class I Intubation Access Assessment: Good (prev easy intubation w/ MAC 3) - Pre-Operative Health Status ASA Pre-Surgery Classification: ASA3 Proposed Anesthetic Plan: General - Pulmonary Hx Smoking: Yes (quit 1 yr ago) Hx Respiratory Symptoms: No (occasional KELLEY, chronic) - Cardiovascular System Hx Hypertension: Yes (suboptimal control, following with cardiology) Hx Heart Attack/AMI: No (EF 35-40% on TTE 05/2020) Hx Percutaneous Transluminal Coronary Angioplasty (PTCA): No Hx Cardia Arrhythmia: No (baseline LBBB on EKG) Hx Valvular Heart Disease: No - Central Nervous System CVA: No - Endocrine Hx Renal Disease: No Hx Liver Disease: No Hx Insulin Dependent Diabetes: No Hx Non-Insulin Dependent Diabetes: Yes (recent diagnosis, no meds ) Hx Thyroid Disease: No - Other Systems Hx Cancer: Yes (hx breast ca s/p chemotherapy, radiation, mastectomy) Hx Obesity: Yes (BMI 33) - Additional Comments Anesthesia Medical History Comments: No hx anesthetic complications. Routine outpatient cardiology visit note on chart reviewed. Patient had cardiology follow up 12/27/20 and states BP meds were increased but otherwise no concerns.
--- NOTE | 2020-12-28 08:40 | Anesthesia Day of Surgery ---
Anesthesia Day of Surgery - Day of Surgery Patient Examined: Yes Patient H&P Reviewed: Yes Patient is NPO: Yes Beta Blockers: Yes (carvedilol)
[2020-12-28] MEDS: MIDAZOLAM 2 MG/2 ML INJ IV NR ×2 (09:05→10:08)
[2020-12-28] MEDS ORDERED: ceFAZolin/Water 2 GM/20 ML 2 GM/20 ML SYRINGE IV ONE (09:59)
[2020-12-28] MEDS ORDERED: ceFAZolin/STERILE WATER 2 GM/20 ML SYRINGE IV NR (11:00)
[2020-12-28] MEDS ORDERED: LIDOCAINE MPF (2%) 20 MG/1 ML VIAL 5 ML ONE (11:44)
[2020-12-28] MEDS ORDERED: propofoL 200 MG/20 ML VIAL IV ONE (11:44)
[2020-12-28] MEDS ORDERED: fentaNYL 100 MCG/2 ML INJ ONE (11:44)
[2020-12-28] MEDS ORDERED: ROCURONIUM 50 MG/5 ML INJ IV ONE (11:44)
[2020-12-28] MEDS ORDERED: LIDOCAINE 2%/EPINEPHRINE 1:200,000 VIAL (20 ML) INFILTRATI ONE (12:45)
[2020-12-28] MEDS ORDERED: ceFAZolin 1 GM VIAL ONE ×2 (12:45→13:34)
[2020-12-28] MEDS ORDERED: GENTAMICIN 40 MG/ML VIAL 2 ML ONE (12:45)
[2020-12-28] MEDS ORDERED: SODIUM CHLORIDE P/F VIAL 10 ML 10 ML ONE ×2 (12:51→13:35)
[2020-12-28] MEDS ORDERED: HYDROmorphone 1 MG/1 ML INJ ONE (13:25)
[2020-12-28] MEDS ORDERED: NEOMY 40 MG/POLYMYXIN B 200,000 UNITS/ML (GU) AMPULE IR ONE ×2 (13:36→14:53)
[2020-12-28] MEDS ORDERED: GENTAMICIN/NS 80 MG/100 ML 100 ML IV ONE (13:37)
[2020-12-28] MEDS ORDERED: ONDANSETRON 4 MG/2 ML INJ ONE (13:42)
[2020-12-28] MEDS ORDERED: PHENYLEPHRINE 10 MG/1 ML INJ SDV ONE (13:42)
[2020-12-28] MEDS ORDERED: PHENYLEPHRINE/NS 1,000 MCG/10 ML SYRINGE (OR USE) IV ONE (13:42)
[2020-12-28] MEDS ORDERED: SODIUM CHLORIDE 0.9% IRR 1,500 ML BOTTLE IR ONE (14:44)
[2020-12-28] MEDS ORDERED: LIDOCAINE 2%/EPINEPHRINE 1:100,000 VIAL (20 ML) INFILTRATI ONE (14:48)
[2020-12-28] MEDS ORDERED: ceFAZolin 1 GM VIAL IV ONE (14:49)
[2020-12-28] MEDS ORDERED: GENTAMICIN 40 MG/ML VIAL 2 ML IV ONE (15:06)
[2020-12-28] MEDS ORDERED: NEOSTIGMINE 10MG/10 ML INJ MDV ONE (15:56)
[2020-12-28] MEDS ORDERED: GLYCOPYRROLATE 0.4 MG/2 ML INJ ONE (15:56)
[2020-12-28] MEDS ORDERED: KETOROLAC 30 MG/1 ML INJ ONE (16:01)
--- NOTE | 2020-12-28 16:35 | Operative Report ---
Operative Report Operative Report: Preoperative Diagnosis: Acquired absence of the left breast; marked asymmetry s/p left breast reconstruction with tissue school examiner and FlexHD placement. Post Operative Diagnosis: Same Procedure: Left breast tissue school examiner/implant exchange; Right mastopexy and reduction for symmetry Surgeon: Dr. Nidia Licona Salvage Diver: None Specimens: Right breast tissue excised; left mastectomy scar EBL: 50cc Procedure: After review of pertinent history and physical exam findings the patient was brought into the operating room and placed supine on the OR table. After induction of adequate general endotracheal anesthesia the patient's chest was prepped and draped in the usual sterile surgical fashion. To begin, we performed the tissue school examiner removal on the left breast. Using and excising her old mastectomy incision, a 650cc Shiloh tissue school examiner, fully expanded and intact, was removed from the left breast pocket. Limited capsulotomy was performed in the well-formed capsule to accomodate the permanent implant. Once hemostasis was achieved, the pocket was irrigated thoroughly with antibiotic solution. Using a Implant funnel, a 650 cc Sh[place]oh silicone implant (SN [id number]) was introduced into the pocket without difficulty. We then began our 3- layered closure using 2-0 and 3-0 Monoderm Quill followed by Dermabond skin glue. Turning our attention to the right breast, the hyatt on the breast were refreshed and measurements double checked and we reduced it as follows: A 9cm inferior pedicle was outlined and de-epithelialized save the nipple and areola complex, which was measured out using a 4.2cm diameter cookie cutter and left completely attached to the inferior pedicle. After this, following a Gomez pattern, skin incisions were made to elevate breast flaps superiorly and excise excess tissue on the superior, medial and lateral aspect of the pedicle. Hemostasis was maintained with electrocautery. Saline solution was then used to irrigate the breast tissue and, satisfied with hemostasis and volume, we began to a 3-layered closure using 2-0 Monocryl and 3-0 Monoderm sutures. Once all incisions were closed, they were sealed with Dermabond skin glue and dressed with telfa and tegaderm dressings. This was followed by placement of a surgical bra. The patient was then awakened from general anesthesia and transferred to PACU in stable condition. There were no complications. All sponge needle and instrument counts were correct at the end of the case.
--- NOTE | 2020-12-28 17:28 | Post Anesthesia Evaluation ---
- Post Anesthesia Evaluation Patient Participated: Yes Airway Patent: Yes Stable Respiratory Function: Yes Nausea/Vomiting: No Temp > 96.8F: Yes Pain Manageable: Yes Adequeate Hydration: Yes Anesthesia Complications: No
[2020-12-28 18:53] VITALS: BP 119/80
== END 2020-12-28 18:00 | disposition home or self-care (01) ==
LOC: OR 07:29
PROVIDERS: ATTEND Plastic Surgery
DX: C50.911 Malignant neoplasm of unspecified site of right female breast (principal); I10 Essential (primary) hypertension; E11.9 Type 2 diabetes mellitus without complications; Z87.891 Personal history of nicotine dependence; Z85.3 Personal history of malignant neoplasm of breast; Z92.3 Personal history of irradiation; Z92.21 Personal history of antineoplastic chemotherapy; E66.9 Obesity, unspecified; Z68.33 Body mass index [BMI] 33.0-33.9, adult; Z79.899 Other long term (current) drug therapy; Z90.12 Acquired absence of left breast and nipple; Z98.890 Other specified postprocedural states
CPT/HCPCS: 19342; 19380; 82962; 88305; C1789; J0690; J1170; J1580; J1885; J2250; J2370; J2405; J2704; J2710; J3010; J7120